=== PATIENT | male | born 1985 | race Caucasian/White ===

== ENCOUNTER 2018-08-03 10:01 | Emergency (ER) | payer MEDICAID ==
[~2018-08-03] VITALS: Ht 182.9 cm; Wt 84.1 kg
[~2018-08-03 10:01] MED LIST: HYDR-3965 PO; HYDR1TAB PO; PENI500T2 PO
[2018-08-03 10:14] VITALS: BP 127/76
[2018-08-03] MEDS ORDERED: PENI500T2 PO (11:32)
[2018-08-03] MEDS ORDERED: HYDR-4353 PO (11:32)
== END 2018-08-03 11:39 | disposition home or self-care (01) ==
LOC: ER 10:02
DX: K02.9 Dental caries, unspecified (principal); F17.200 Nicotine dependence, unspecified, uncomplicated; F11.90 Opioid use, unspecified, uncomplicated; Z59.0 Homelessness; Z79.899 Other long term (current) drug therapy
CPT/HCPCS: 99283

== ENCOUNTER 2018-08-19 15:57 | Emergency (ER) | payer MEDICAID ==
[~2018-08-19] VITALS: Ht 182.9 cm; Wt 84.1 kg
[2018-08-19 16:05] VITALS: BP 139/93
== END 2018-08-19 16:21 | disposition home or self-care (01) ==
LOC: ER 15:57
DX: K04.7 Periapical abscess without sinus (principal); F11.90 Opioid use, unspecified, uncomplicated; Z59.0 Homelessness; Z79.899 Other long term (current) drug therapy; Z79.2 Long term (current) use of antibiotics
CPT/HCPCS: 99283

== ENCOUNTER 2019-06-14 23:20 | Emergency (ER) | payer MEDICAID ==
[~2019-06-14] VITALS: Ht 182.9 cm; Wt 88.6 kg
[2019-06-15] LABS: RED BLOOD COUNT 5.07 X10'6 (4.70-6.10); WHITE BLOOD COUNT 9.6 X10'3 (4.5-11.0)
[2019-06-15 00:02] LABS: BASOPHILS % (AUTO) 0.5 % (0-1); EOSINOPHILS # (AUTO) 0.2 X10'3 (0-0.9); EOSINOPHILS % (AUTO) 1.6 % (0-6); HEMATOCRIT 46.7 % (42.0-52.0); LYMPHOCYTES # (AUTO) 4.5 X10'3 (1.1-4.8); LYMPHOCYTES % (AUTO) 46.9 % (21-51); MEAN CORPUSCULAR HEMOGLOBIN 31.5 PG (27.0-31.0); MEAN CORPUSCULAR HGB CONC 34.2 g/dL (33.0-36.5); MEAN PLATELET VOLUME 7.4 FL (7.4-10.4); MONOCYTES # (AUTO) 0.7 X10'3 (0-0.9); MONOCYTES % (AUTO) 6.8 % (2-12); NEUTROPHILS # (AUTO) 4.3 X10'3 (1.8-7.7); NEUTROPHILS % (AUTO) 44.2 % (42-75); PLATELET COUNT 263 X10'3 (140-440); RED CELL DISTRIBUTION WIDTH 12.6 % (11.5-14.5)
[2019-06-15 00:09] LABS: ALANINE AMINOTRANSFERASE 20 U/L (12-78); ALBUMIN/GLOBULIN RATIO 0.9 (1.1-1.5); ALKALINE PHOSPHATASE 63 IU/L (46-116); ANION GAP 8 (8-16); ASPARTATE AMINO TRANSFERASE 22 U/L (10-37); BILIRUBIN,TOTAL 0.4 MG/DL (0.1-1.0); BLOOD UREA NITROGEN 11 MG/DL (7-18); BUN/CREATININE RATIO 9.7 (5.4-32.0); CALCIUM 8.5 MG/DL (8.5-10.1); CHLORIDE 107 MMOL/L (99-107); CREATININE 1.13 MG/DL (0.60-1.10); GLUCOSE 147 MG/DL (70-104); LIPASE 112 U/L (73-393); POTASSIUM 3.4 MMOL/L (3.5-5.1); SODIUM 144 MMOL/L (135-145); TOTAL CARBON DIOXIDE 28.6 MMOL/L (24-32); TOTAL PROTEIN 8.3 G/DL (6.4-8.2); eGFR 75 ML/MIN
[2019-06-15 00:33] VITALS: BP 136/86
== END 2019-06-15 00:34 | disposition home or self-care (01) ==
LOC: ER 23:20
DX: T40.1X1A Poisoning by heroin, accidental (unintentional), initial encounter (principal); R09.2 Respiratory arrest; R79.1 Abnormal coagulation profile; Z79.899 Other long term (current) drug therapy; Y92.89 Other specified places as the place of occurrence of the external cause
CPT/HCPCS: 36415; 80053; 83690; 85025; 85610; 93005; 94640; 99284

== ENCOUNTER 2021-11-25 10:23 | Emergency (ER) | payer MEDICAID ==
[~2021-11-25] VITALS: Ht 182.9 cm; Wt 109.1 kg
[2021-11-25 10:27] VITALS: BP 169/117
[2021-11-25] MEDS ORDERED: SULF1TAB49 PO (10:45)
[2021-11-25] MEDS ORDERED: sulfamethoxazole/trimethoprim DS (800/160mg) tablet PO ONE (10:50)
[2021-11-25] MEDS ORDERED: TETanus/Pertussis (Acell)/Diphther VAC/PF (Tdap-Adult) 0.5ml syringe IMVAC ONE (10:50)
== END 2021-11-25 11:02 | disposition home or self-care (01) ==
LOC: ER 10:24
DX: L03.311 Cellulitis of abdominal wall (principal); L73.1 Pseudofolliculitis barbae; F17.210 Nicotine dependence, cigarettes, uncomplicated; F14.10 Cocaine abuse, uncomplicated
CPT/HCPCS: 90471; 90715; 99283